=== PATIENT | female | born 1970 | race Caucasian/White ===

== ENCOUNTER 2016-06-23 02:10 | Emergency (ER) | payer BC ==
[~2016-06-23] VITALS: Ht 162.6 cm; Wt 68.0 kg
[2016-06-23 02:20] VITALS: BP 148/81; PULSE 103; RESP 18; TEMP 97.9; O2SAT 97
[2016-06-23] MEDS ORDERED: NACL 0.9% 1,000 ML IV ONE ×2 (02:45→03:30)
[2016-06-23 03:16] LABS: BASOPHILS % (AUTO) 0.4 % (0.0-2.0); EOSINOPHILS # (AUTO) 0.2 K/uL (0.0-0.4); EOSINOPHILS % (AUTO) 3.4 % (0.0-4.0); LYMPHOCYTES # (AUTO) 1.2 K/uL (1.0-5.5); LYMPHOCYTES % (AUTO) 19.2 % (20.5-51.5); MEAN CORPUSCULAR HEMOGLOBIN 29 pg (27-31); MEAN CORPUSCULAR HGB CONC 34 % (32-36); MEAN CORPUSCULAR VOLUME 85 fL (79.0-98.0); MONOCYTES # (AUTO) 0.5 K/uL (0.0-1.0); MONOCYTES % (AUTO) 8.8 % (1.7-9.3); NEUTROPHILS # (AUTO) 4.1 K/uL (1.8-7.7); NEUTROPHILS % (AUTO) 68.2 % (40.0-70.0); PLATELET COUNT (AUTO) 292 K/uL (130-430); RED BLOOD CELL COUNT(AUTO) 2.12 MIL/uL (4.2-6.2); RED CELL DISTRIBUTION WIDTH 13.1 % (9.0-15.0)
[2016-06-23 03:21] LABS: CALCIUM 8.5 mg/dL (8.4-11.0); CHLORIDE 108 mmol/L (98-107); CREATININE 0.63 mg/dL (0.55-1.30); GLUCOSE 116 mg/dL (70-99); SODIUM SERUM 140 mmol/L (136-145); UREA NITROGEN, BLOOD 9 mg/dL (8-21)
[2016-06-23 03:26] LABS: ALANINE AMINOTRANSFERASE 42 U/L (12-78); ALBUMIN 2.8 g/dL (3.4-4.8); ASPARTATE AMINOTRANSFERASE 35 U/L (10-37); INR 0.9 (0.8-1.2); PROTHROMBIN TIME 9.8 SECS (9.5-12.5); TOTAL BILIRUBIN 1.8 mg/dL (0.0-1.0); TOTAL PROTEIN, SERUM 6.7 g/dL (6.4-8.3)
[2016-06-23 03:34] LABS: HEMOGLOBIN 6.1 g/dL (12.0-16.0)
[2016-06-23 03:35] LABS: ANION GAP < 3 (5-15); GFR AFRICAN AMERICAN 132 mL/min (>90)
[2016-06-23 03:39] LABS: BILIRUBIN,URINE NEGATIVE (NEGATIVE); BLOOD, URINE NEGATIVE (NEGATIVE); CLARITY/URINE CLEAR (CLEAR); COLOR,URINE YELLOW (YELLOW); GLUCOSE,URINE NEGATIVE (NEGATIVE); KETONES,URINE NEGATIVE (NEGATIVE); LEUKOCYTE ESTERASE ,URINE NEGATIVE (NEGATIVE); NITRITE, URINE NEGATIVE (NEGATIVE); PH,URINE 8.5 (5.0-8.0); PROTEIN URINE NEGATIVE (NEGATIVE); UROBILINOGEN,URINE 0.2 (0.2-1.0)
[2016-06-23] MEDS ORDERED: IOHEXOL 350 mgI/mL, 150 ML INFUS..BTL IV ONE ×2 (03:58→04:00)
[2016-06-23] MEDS ORDERED: IOHEXOL 100 ML IV ONE (03:59)
[2016-06-23 05:45] VITALS: BP 128/84; PULSE 100; RESP 16; TEMP 98.1; O2SAT 100
== END 2016-06-23 05:45 | disposition home or self-care (01) ==
LOC: SED 02:10
DX: D64.9 Anemia, unspecified (principal); R00.2 Palpitations; Z98.890 Other specified postprocedural states
CPT/HCPCS: 36415; 71275; 80053; 81003; 85025; 85379; 85610; 85730; 93005; 96360; 96361; 99285; J7030; Q9967

== ENCOUNTER 2016-07-16 08:39 | Day surgery (SDC) | payer BC ==
[~2016-07-16] VITALS: Ht 162.6 cm; Wt 67.1 kg
[2016-07-16 09:12] LABS: BILIRUBIN,URINE NEGATIVE (NEGATIVE); CLARITY/URINE HAZY (CLEAR); COLOR,URINE YELLOW (YELLOW); GLUCOSE,URINE NEGATIVE (NEGATIVE); KETONES,URINE NEGATIVE (NEGATIVE); LEUKOCYTE ESTERASE ,URINE NEGATIVE (NEGATIVE); NITRITE, URINE NEGATIVE (NEGATIVE); PH,URINE 5.5 (5.0-8.0); PROTEIN URINE NEGATIVE (NEGATIVE); UROBILINOGEN,URINE 0.2 (0.2-1.0)
[2016-07-16 09:13] VITALS: O2SAT 99
[2016-07-16 09:15] LABS: BLOOD, URINE TRACE (NEGATIVE)
[2016-07-16] MEDS ORDERED: CEFAZOLIN SOD 1 GM/ ISO 50 ML PREMIX IV ONE (09:15)
[2016-07-16 09:32] LABS: HCG,QUAL RESULT NEGATIVE (NEGATIVE)
[2016-07-16 09:41] LABS: BACTERIA,URINE MODERATE /HPF (None Seen); WBC,URINE 0-3 /HPF (0-3)
[2016-07-16 09:42] LABS: MUCUS,URINE 1+ /LPF (None Seen)
[2016-07-16] MEDS ORDERED: PROPOFOL 200MG/ 20ML VIAL (DIPRIVAN) IV ONE (10:00)
[2016-07-16] MEDS ORDERED: MIDAZOLAM HCL 5 MG/5 ML VIAL IVP ONE (10:00)
[2016-07-16] MEDS ORDERED: KETOROLAC TROMETHAMINE 30 MG VIAL IVP ONE (10:00)
[2016-07-16] MEDS ORDERED: SEVOFLURANE 15 MIN GAS INH ONE (10:00)
[2016-07-16] MEDS ORDERED: LR 1,000 ML IV.SOLN IV ONE (10:00)
[2016-07-16] MEDS ORDERED: MEPERIDINE HCL/PF 100 MG/ML AMP IM ONE (10:00)
[2016-07-16] MEDS ORDERED: ePHEDrine sulfate 50 MG/ML VIAL IVP PRN (11:15)
[2016-07-16] MEDS ORDERED: KETOROLAC TROMETHAMINE 30 MG VIAL IVP PRN (11:15)
[2016-07-16] MEDS ORDERED: HYDROmorphone 1 MG INJ. 1 MG/ML AMPUL IVP PRN (11:15)
[2016-07-16] MEDS ORDERED: ONDANSETRON HCL 4 MG/2 ML VIAL IVP PRN ×2 (11:15→11:30)
[2016-07-16] MEDS ORDERED: HYDROmorphone 2 MG/ML VIAL IVP PRN (11:15)
[2016-07-16] MEDS ORDERED: MEPERIDINE HCL/PF 25 MG/ML DISP.SYRIN IVP PRN ×2 (11:15)
[2016-07-16] MEDS ORDERED: HYDROcodone/ACETAMIN 5-325 MG TAB (NORCO/ VICODIN) PO PRN (11:30)
[2016-07-16] MEDS ORDERED: OXYCODONE/ACETAMINOPHEN 5-325 TABLET PO PRN (11:30)
[2016-07-16 13:02] VITALS: BP 95/56; PULSE 79; RESP 12
== END 2016-07-16 12:50 | disposition home or self-care (01) ==
LOC: SDS 08:39
PROVIDERS: ATTEND Specialist
DX: N84.0 Polyp of corpus uteri (principal); N92.0 Excessive and frequent menstruation with regular cycle; D64.9 Anemia, unspecified; R51 Headache
CPT/HCPCS: 58558; 81000; 84703; 88305; J0690; J1885; J2175; J2250; J2704; J7120; J1170

== ENCOUNTER 2017-04-29 05:45 | Day surgery (SDC) | payer BC ==
[~2017-04-29] VITALS: Ht 162.6 cm; Wt 70.3 kg
[2017-04-29] MEDS ORDERED: CEFAZOLIN 1 GM IVPB PREMIX 50 ML IV ONE (07:04)
[2017-04-29] MEDS ORDERED: KETOROLAC TROMETHAMINE 30 MG VIAL IVP ONE (07:15)
[2017-04-29] MEDS ORDERED: CEFAZOLIN SOD 1 GM/ ISO 50 ML PREMIX IV ONE (07:15)
[2017-04-29] MEDS ORDERED: PROPOFOL 200MG/ 20ML VIAL (DIPRIVAN) IV ONE (07:15)
[2017-04-29] MEDS ORDERED: NS 1000 ML BAG IV ONE (07:15)
[2017-04-29] MEDS ORDERED: fentaNYL CITRATE/PF 100 MCG/2 ML AMP IVP ONE (07:15)
[2017-04-29] MEDS ORDERED: ONDANSETRON HCL 4 MG/2 ML VIAL IVP ONE (07:15)
[2017-04-29] MEDS ORDERED: ROCURONIUM BROMIDE 10 MG/ML (ZEMURON) IV ONE (07:15)
[2017-04-29] MEDS ORDERED: DEXAMETHASONE SOD PHOSPHATE 4 MG/ML VIAL IVP ONE (07:15)
[2017-04-29] MEDS ORDERED: MIDAZOLAM HCL 5 MG/5 ML VIAL IVP ONE (07:15)
[2017-04-29] MEDS ORDERED: SEVOFLURANE 15 MIN GAS INH ONE (07:15)
[2017-04-29] MEDS ORDERED: ONDANSETRON HCL 4 MG/2 ML VIAL IVP PRN (08:00)
[2017-04-29] MEDS ORDERED: OXYCODONE/ACETAMINOPHEN 5-325 TABLET PO PRN ×2 (08:00)
[2017-04-29] MEDS ORDERED: HYDROcodone/ACETAMIN 5-325 MG TAB (NORCO/ VICODIN) PO PRN (08:00)
[2017-04-29] MEDS ORDERED: LR 1,000 ML IV SCH (09:00)
[2017-04-29] MEDS ORDERED: HYDROmorphone 1 MG INJ. 1 MG/ML AMPUL IVP PRN (09:00)
[2017-04-29] MEDS ORDERED: HYDROmorphone 2 MG/ML VIAL IVP PRN ×2 (09:00)
[2017-04-29] MEDS ORDERED: MEPERIDINE HCL/PF 25 MG/ML DISP.SYRIN IVP PRN (09:00)
[2017-04-29] MEDS ORDERED: HYDROcodone/ACETAMIN 5-325 MG TAB (NORCO/ VICODIN) ONE (09:32)
[2017-04-29 09:43] VITALS: BP_SYST 136
== END 2017-04-29 10:55 | disposition home or self-care (01) ==
LOC: SMU 05:45 → SDS 05:45
PROVIDERS: ATTEND Specialist
DX: N92.0 Excessive and frequent menstruation with regular cycle (principal)
CPT/HCPCS: 58300; 58563; 88304; 88305; J0690; J1100; J1885; J2250; J2405; J2704; J3010; J7030; J7120